=== PATIENT | female | born 1960 | race Asian ===

== ENCOUNTER → 2017-09-18 14:01 | Outpatient (POV) | payer OTHER, SELFPAY | DX: Z00.00 Encounter for general adult medical examination without abnormal findings (principal) ==

== ENCOUNTER 2023-12-27 08:07 | Outpatient (CLI) | payer MEDICARE, OTHER, SELFPAY ==
--- NOTE | 2023-12-27 08:14 | CT_ITS ---
APPROVED REPORT Primary Class Teacher: CLINICAL INDICATION Chest Pain TECHNIQUE Image Acquisition: A 128 slice MDCT scanner ([employer]lectrica View) was used for data acquisition. A noncontrast coronary calcium scan was performed. A CT attenuation threshold of 130 Hounsfield units (HU) was used for the detection of calcium in contiguous voxels of 1 sq mm in area to be counted as individual lesions. Bolus tracking in the ascending aorta with a threshold of 180 HU was performed. Immediately afterwards, ECG synchronized cardiac CT was then performed from the cardiac base to apex using retrospective gating with ECG tube current modulation. A total of 85 mL of Isovue 370 mg/mL contrast medium was administered at 5 mL/sec followed by a saline flush using a biphasic injection protocol. A tube voltage of 120 KVp was used. The patient received the following medications prior to the cardiac CT. 75 mg of oral metoprolol 5 mg of intravenous metoprolol 15 mg of oral ivabradine 0.8 mg of sublingual nitroglycerin The average heart rate at the time of acquisition was 75 bpm and regular. Image Reconstruction Transaxial images were reconstructed at 0.67 mm slide thickness. Data was reviewed interactively on an advanced workstation capable of 2 and 3-dimensional displays in all conventional reconstruction formats, including multiplanar reformations, maximum intensity projections, curved multiplanar reformations, and volume rendered reconstructions. When applicable, selected routine images describing the relevant coronary anatomy and pathology were saved and sent to PACS. Complications None Technical Quality Overall image quality was good. Coronary artery opacification was adequate. Total DLP (Dose-Length Product) is 1762.2 mGy-cm. The reported value represents the total of one or more individual components during the CT acquisition of this date and at this time, and as such, the same value may appear in more than one CT report depending on the interpreting/reporting physicians. COMPARISON None FINDINGS CT Coronary Calcium Scoring LMA (Left Main Artery) = 0 LAD (Left Anterior Descending) = 0 LCX (Left Coronary Circumflex) = 0 RCA (Right Coronary Artery) = 0 Total Calcium Score = 0 using the AJ-130 method. The interpretation of the calcium heart score is based on the following continuum*: 0 = no calcified plaque detected (risk of coronary artery disease is very low ??? less than 5%) 1-10 = calcium detected in extremely minimal levels (risk of coronary diseases is still low ??? less than 10%) 11-100 = mild levels of plaque detected with certainty (mild or minimal narrowing of heart arteries is likely) 101-400 = definite,at least moderate levels of plaque detected (relatively high risk of a heart attack within 3-5 years) >401-999 = extensive levels of plaque detected (high risk of heart attack, high levels of vascular disease are present, high likelihood of at least one significant coronary narrowing) *The calcium heart score quantifies the burden of coronary calcification/plaque in the coronary arteries. The calcium heart score is not able to evaluate the presence or burden of non-calcified (i.e. soft) plaque. There is mild calcification in the ascending thoracic aorta. Coronary CT Angiography The coronary arterial system is right dominant. Quantitative Stenosis Grading: Left Main (LM): The left main originates normally from the left sinus of Valsalva. The LM bifurcates into the left anterior descending artery and left circumflex artery. The LM is patent with no evidence of atherosclerosis. Left Anterior Descending (LAD) and Diagonal Branches: The LAD gives off 2 diagonal branch(es). The LAD and its branches are patent with no evidence of atherosclerosis. There is no evidence of LAD-myocardial bridge. Left Circumflex (LCX) and Obtuse Marginals (OM): The LCX gives off 1 Obtuse Marginal (OM) branch(es). The LCX and its branches are patent with no evidence of atherosclerosis. Right Coronary Artery (RCA): The RCA originates normally from the right sinus of Valsalva. The RCA gives off a posterior descending artery (PDA) and posterolateral (PL) branches. The RCA and its branches are patent with no evidence of atherosclerosis. Non-Coronary Cardiac Findings: Analysis of the left ventricular (LV) structure and function was performed after 3-D reconstruction of the LV from axial images, with user-corrected automatic contouring for assessment of LV volumes and user-defined reconstruction from oblique planes for measurement of 3-D cardiac structure and function. -The left ventricle systolic function is normal. -There is no left atrial appendage filling defect. Two right pulmonary veins and two left pulmonary veins drain normally into the left atrium. -No pericardial thickening or calcification. -Central and branch pulmonary arteries in the [id number] are unremarkable. -Thoracic aorta within the visualized thoracic aortic-branches in the [id number] is unremarkable. -Mild calcification in the ascending thoracic aorta. Extracardiac Structures No significant extra-cardiac findings. Note, however, that this study is focused on the cardiac findings. IMPRESSION -Absence of coronary calcification with an Agatston score = 0 using the AJ-130 method. -No evidence of significant flow-limiting atherosclerosis of the coronary arteries. -CAD-RADS 0. Management recommendations per ACC/AHA guidelines*, as clinically appropriate. *Recommendations: CAD RADS 0: Reassurance. Consider non-atherosclerotic causes of chest pain. CAD RADS 1: Consider non-atherosclerotic causes of chest pain. Consider preventive therapy and risk factor modification. CAD RADS 2: Consider non-atherosclerotic causes of chest pain. Consider preventive therapy and risk factor modification, particularly for patients with nonobstructive plaque in multiple segments. CAD RADS 3: Consider further functional testing. Consider symptom-guided anti-ischemic and preventive pharmacotherapy as well as risk factor modification per published guideline statements. CAD RADS 4A: Consider further functional testing or invasive coronary angiography with revascularization per published guideline statements. Consider symptom-guided anti-ischemic and preventive pharmacotherapy as well as risk factor modification per published guideline statements. CAD RADS 4B: Invasive coronary angiography recommended with revascularization per published guideline statements. Consider symptom-guided anti-ischemic and preventive pharmacotherapy as well as risk factor modification per published guideline statements. CAD RADS 5: Consider invasive angiography and/or viability assessment with revascularization per published guideline statements. Consider symptom-guided anti-ischemic and preventive pharmacotherapy as well as risk factor modification per published guideline statements. CRITICAL RESULT None COMMUNICATION Per this written report The coronary and cardiac findings of this CCTA were reviewed, reported, and signed by Angel Bhandari MD (Range Mechanic) Conclusion Electronically signed by : Allyssa Bhandari MD 12/30/2023 15:28:07
[2023-12-27 08:19] VITALS: BMI 35.1
[2023-12-27 08:36] VITALS: BP 136/88; PULSE 79; RESP 16; TEMP 36.1; O2SAT 100
[2023-12-27] MEDS: IVABRADINE HCL 7.5MG TABLET 15 MG PO (08:38)
[2023-12-27] MEDS: METOPROLOL TARTRATE 50MG TABLET 50 MG (08:39)
[2023-12-27] MEDS: METOPROLOL TARTRATE 25MG TABLET 25 MG (08:39)
[2023-12-27 08:45] LABS: Chloride 97 mmol/L (98-107)
[2023-12-27 08:46] LABS: Sodium 137 mmol/L (136-145)
[2023-12-27 08:48] LABS: Blood Urea Nitrogen 24 mg/dl (7-17); Creatinine Clearance Estimated 75 mL/min (50-200); Estimated Glomerular Filt Rate 72 ml/min (>60); GFR (African American) 87 ML/MIN (>60)
[2023-12-27 08:49] LABS: Calcium 9.4 mg/dl (8.4-10.2); Carbon Dioxide 32 mmol/L (22.0-30.0); Glucose 111 mg/dl (74-100)
[2023-12-27 09:48] VITALS: BP 158/88; PULSE 76; RESP 18; O2SAT 97
[2023-12-27] MEDS: METOPROLOL TARTRATE 5MG/5ML VIAL 5 MG IV (09:48)
[2023-12-27 09:58] VITALS: BP 133/98; PULSE 72; RESP 18; O2SAT 100
[2023-12-27] MEDS: IOPAMIDOL-370 (76%);100ML BOTTLE 85 ML IV (10:04)
[2023-12-27] MEDS: SODIUM CHLORIDE 0.9% 10ML SYR (RAD ONLY) 10 ML IV (10:04)
[2023-12-27] MEDS: 0.9 % SODIUM CHLORIDE 50 ML VIAL IV (10:04)
--- NOTE | 2023-12-27 10:04 | CA_ITS ---
APPROVED REPORT EXAM: Comprehensive 2D, Doppler, and color-flow Echocardiogram Medical Insurance Claims Processor: Asiya Fiore, RT(R) Ht: 5 ft 1 in Wt: 186lbs BSA: 1.83 BP: 144/99 mmHg Indications: AFIB, hyperlipidemia, HTN, DM, pre op rt knee replacement, PUSHPA, bilateral mastectomy 2020 2D Dimensions LVEF (Rodriguez's) 63.70 % F: 54 - 74 LV Volume 39.40 mL F: 46 - 106 LV Volume Index 21.5 mL/m2 F: 29 - 61 LA Volume 16.70 mL LA Volume Index 9.13 mL/m2 (M/F) 16-34 EF AP4 67.60 % EF AP2 57.4 % EF BP 63.7 % GL Strain -21.4 % M-Mode Dimensions RVDd 2.74 cm (0.9-2.6) LA Diam 4.51 cm (1.9-4.0) LVDd 4.75 cm (3.5-5.7) LVDs 3.55 cm (3.5-5.7) IVSd 1.00 cm (0.6-1.1) PWd 1.10 cm (0.6-1.1) EF (Teich) 49.90% FS 25.30% EDV (Teich) 104.90 mL ESV (Teich) 52.60 mL Tricuspid Valve TR P. Velocity 223.00 cm/s RAP Estimate 10.00 mmHg RVSP 29.80 mmHg Left Ventricle The left ventricle is normal size. The left ventricular systolic function is normal. The left ventricular ejection fraction is within the normal range. There is increased LV wall thickness. There is normal LV segmental wall motion. Diastolic function is indeterminate. LVEF is 60%. Right Ventricle The right ventricle is normal size. The right ventricular systolic function is normal. Atria Left atrium is mildly dilated. Right atrium is mildly dilated. There is no Doppler evidence of interatrial shunt. Aortic Valve The aortic valve is mildly thickened. There is no aortic valvular stenosis. Mild aortic regurgitation. Mitral Valve The mitral valve leaflets are mildly thickened. No evidence of mitral valve stenosis. Trace mitral regurgitation. Tricuspid Valve The tricuspid valve leaflets are thin and pliable. Trace tricuspid regurgitation. RVSP is 20-25 mmHg. Pulmonic Valve The pulmonary valve is normal in structure. Mild pulmonic regurgitation. Great Vessels The aortic root is normal in size. The ascending aorta is not well-visualized. IVC is normal in size and collapses >50% with inspiration. Pericardium There is no pericardial effusion. Other Information Study Quality: Fair Conclusion Normal biventricular systolic function. Mild biatrial dilation. Mild AI, mild NH. Electronically signed by : Allyssa Bhandari MD 12/31/2023 00:42:07
[2023-12-27 10:05] VITALS: BP 132/85; PULSE 77; RESP 16; O2SAT 96
[2023-12-27] MEDS: NITROGLYCERIN 0.4MG SL TABLET SL (11:19)
== END 2023-12-27 10:05 | disposition home or self-care (01) ==
LOC: RT 08:08 → RAD 08:31
PROVIDERS: PCP Family Medicine; Visit Provider Physician Assistant
DX: R07.2 Precordial pain (principal); R40.0 Somnolence; G47.9 Sleep disorder, unspecified; I48.91 Unspecified atrial fibrillation
CPT/HCPCS: 75574; 80048; 93306; Q9967

== ENCOUNTER 2024-01-08 10:34 | Day surgery (SDC) | payer MEDICARE, OTHER, SELFPAY ==
[2024-01-07 14:33] VITALS: BMI 34.5
--- NOTE | 2024-01-08 11:04 | CA_ITS ---
APPROVED REPORT EXAM: Comprehensive 2D, Doppler, and color-flow Echocardiogram Hemp Fiber Taker Off: Estephania Tobar RVT Ht: 5 ft 1 in Wt: 183lbs BSA: 1.82 BP: 140/90 mmHg Indications: A-FIB WITH CARDIOVERSION,HTN,HLD,DM Procedure After obtaining informed consent, patient underwent transesophageal echo in the [facility]. Type of Sedation : MAC Sedation start time: 12:50 PM Case end Time: 1:05 PM Transesophageal probe was inserted and advanced into esophagus without difficulty by Dr. Angel Bhandari. The REDDY was performed without complications. Synchronized Cardioversion acheived with 150 Joules after 1 attempt(s). Rhythm following Synchronized Cardioversion: Normal Sinus Rhythm Throughout the procedure, the blood pressure, pulse oximetry, cardiac rhythm, and rate were monitored. The patient tolerated the procedure without adverse effects. Recovery from conscious sedation was uneventful and vital signs were stable. Left Ventricle The left ventricle is normal size. The left ventricular systolic function is normal. The left ventricular ejection fraction is within the normal range. There is increased LV wall thickness. There is normal LV segmental wall motion. LVEF is 55%. Right Ventricle The right ventricle is normal size. The right ventricular systolic function is normal. Atria The left atrium size is normal. No thrombus is visualized in the left atrium or appendage. The right atrium size is normal. Interatrial septum is intact without evidence of ASD or PFO. Aortic Valve The aortic valve is mildly thickened. The aortic valve is trileaflet. Mild aortic regurgitation. Mitral Valve The mitral valve leaflets are mildly thickened. No evidence of mitral valve stenosis. Trace mitral regurgitation. Tricuspid Valve The tricuspid valve leaflets are thin and pliable. Mild tricuspid regurgitation. Pulmonic Valve The pulmonary valve is normal in structure. Trace pulmonic regurgitation. RVSP is 7 mmHg plus RA pressure. Great Vessels The aortic root is normal in size. The ascending aorta is normal in size. Pericardium Trivial circumferential pericardial effusion is present. No echo indications of tamponade. Other Information Study Quality: Fair Conclusion Normal biventricular systolic function. Mild AI, mild TR. Trivial circumferential pericardial effusion is present. No echo indications of tamponade. No evidence of LA or IVET thrombus. Once the REDDY demonstrated no evidence of thrombus, the patient underwent DCCV with 150 J, after which she converted from atrial fibrillation to normal sinus rhythm. During recovery, she remained in normal sinus rhythm with brief episodes of atrial fibrillation (which spontaneously converted). Due to paroxysms of atrial fibrillation post cardioversion, she was planned to start amiodarone 400 mg 3 times daily, with plan to taper and eventually discontinue over time. Electronically signed by : Allysas Bhandari MD 01/09/2024 12:55:39
--- NOTE | 2024-01-08 11:12 | ECG_ITS ---
APPROVED REPORT Exam: Resting ECG HR:93 bpm ECG Measurements Heart Rate 93 AXES QRSd 84 QRS -15 QT 366 T 3 QTc [address] DEVIATION AND MODERATE T-WAVE ABNORMALITY, CONSIDER ANTERIOR ISCHEMIA [-0.1+ mV T-WAVE IN V3/V4] ABNORMAL ECG UNCONFIRMED REPORT Electronically signed by : Garcia De La Vega MD 01/09/2024 16:09:29
[2024-01-08 11:26] VITALS: BP 141/66; PULSE 77; RESP 18; TEMP 36.2; O2SAT 100
[2024-01-08 11:34] LABS: POC Glucose,Bedside 101 (70-110)
[2024-01-08] MEDS: LACTATED RINGERS 1000ML 1,000 ML 25 ML IV (11:37)
[2024-01-08 12:16] LABS: Basophils # 0.1 K/mm3 (0-0.2); Basophils % 1.2 % (0.1-2.0); Chloride 105 mmol/L (98-107); Eosinophils # 0.1 K/mm3 (0.0-0.4); Hematocrit 44.5 % (37.0-47.0); Hemoglobin 14.4 g/dL (12.2-16.2); Lymphocytes % 24.4 % (10-50); Mean Corpuscular HGB Conc 32.3 g/dL (31.8-35.4); Mean Corpuscular Hemoglobin 29.5 pg (27.0-31.2); Mean Corpuscular Volume 91.4 fl (81-99); Mean Platelet Volume 7.8 fl (7.4-10.4); Monocytes # 0.3 K/mm3 (0.1-1.0); Monocytes % 4.1 % (1.7-9.3); Neutrophils # 5.5 K/mm3 (1.8-7.8); Neutrophils % 69.2 % (37.0-80.0); Platelet Count 337 K/mm3 (142-424); Potassium 4.8 mmoL/L (3.5-5.1); Red Blood Count 4.86 M/mm3 (4.20-5.40); Red Cell Distribution Width 15.3 % (11.5-17.5); Sodium 140 mmol/L (136-145)
[2024-01-08 12:19] LABS: Anion Gap 10.8 mEq/L (5-15); Blood Urea Nitrogen 23 mg/dl (7-17); Calcium 9.5 mg/dl (8.4-10.2); Carbon Dioxide 29 mmol/L (22.0-30.0); Creatinine Clearance Estimated 73 mL/min (50-200); Estimated Glomerular Filt Rate 84 ml/min (>60); GFR (African American) 102 ML/MIN (>60); Glucose 112 mg/dl (74-100)
[2024-01-08 12:31] LABS: INR 1.02 (0.9-1.1); Prothrombin Time 11.4 seconds (10.1-12.5)
--- NOTE | 2024-01-08 12:39 | EXP.ANES.CKL ---
[facility] Disclaimer: The information contained in this section may have been updated after the patient was seen, as this information can be updated by other users. Medical History Diabetes Hyperlipidemia Hypertension Atrial fibrillation Surgical History H/O section History of mastectomy Family History Other No significant family history Social History (Updated 01/08/24 @ 11:11 by Glendy Morales RN) Smoking Status: Never smoker alcohol intake: never substance use type: denies use current occupational status: employed Travel in the last 8 weeks: Inside the [place] caffeine: Yes [facility] Anesthesia Checklist Patient Identification Patient Identification: Arm Band and Verbal (Name & ) Structural Data Admitted From: Home Planned Operative Procedure/s: REDDY w/cardioversion Consent for Planned Operative Procedure(s) Verified: Yes Verified Documents: Surgical Consent and History and Physical NPO Status Verified Time NPO: 20:30 Chart Verification Results Verified: CBC, BMP and ECG Additional verifications Fingerstick Blood Glucose: 101 Patient : No Anesthesia Reactions: No Hx Blood Transfusions: No Blood Transfusion Reaction: No Cardiovascular Assessment Pulse Rhythm: Irregular Peripheral Edema: No Airway Assessment Mallampati Score:: Class II C-Spine Mobility Assessed: Yes TMJ Mobility Assessed: Yes Dentition: Partials (Bottom. Nothing loose per pt.) Neurological Assessment Level of Consciousness: Awake, Alert, Appropriate and Follows Commands Hx Seizures: No Numbness or tingling in extremities: No Anesthesia Plan Anesthesia Risk discussed: Yes Anesthesia Plan: Verified ASA Class: III Anesthesia Type: MAC
[2024-01-08 12:50] VITALS: O2SAT 95
[2024-01-08 13:04] VITALS: BP 106/61; PULSE 67; RESP 16; TEMP 36.1; O2SAT 96
[2024-01-08 13:14] VITALS: BP 128/70; PULSE 61; RESP 16; O2SAT 96
--- NOTE | 2024-01-08 13:14 | ECG_ITS ---
APPROVED REPORT Exam: Resting ECG HR:51 bpm ECG Measurements Heart Rate 51 AXES NH 163 P 46 QRSd 92 QRS -18 QT 474 T -14 QTc 450 Conclusion SINUS BRADYCARDIA WITH OCCASIONAL SUPRAVENTRICULAR PREMATURE COMPLEXES POSSIBLE RIGHT VENTRICULAR CONDUCTION DELAY [RSR (QR) IN V1/V2] NONSPECIFIC ST & T-WAVE ABNORMALITY BORDERLINE ECG UNCONFIRMED REPORT Electronically signed by : Garcia De La Vega MD 01/09/2024 16:08:56
[2024-01-08 13:24] VITALS: BP 102/62; PULSE 62; RESP 16; O2SAT 98
== END 2024-01-08 13:34 | disposition home or self-care (01) ==
PROVIDERS: PCP Family Medicine; Visit Provider Internal Medicine
DX: R40.0 Somnolence (principal); G47.9 Sleep disorder, unspecified; Z01.810 Encounter for preprocedural cardiovascular examination; E11.9 Type 2 diabetes mellitus without complications; R06.83 Snoring; E78.2 Mixed hyperlipidemia; I48.0 Paroxysmal atrial fibrillation; I10 Essential (primary) hypertension
CPT/HCPCS: 36415; 80048; 82962; 85025; 85610; 92960; 93005; 93270; 93312; 93319; J7120

== ENCOUNTER 2024-04-21 14:27 | Outpatient (CLI) | payer MEDICARE, OTHER, SELFPAY ==
[2024-04-21 15:35] LABS: Free T4 (Free Thyroxine) 1.37 ng/dl (0.78-2.19)
[2024-04-21 15:38] LABS: Alanine Aminotransferase 17 U/L (12-78); Albumin Level 4.3 g/dl (3.5-5.0); Alkaline Phosphatase 105 U/L (38-126); Anion Gap 15.7 mEq/L (5-15); Aspartate Amino Transferase 24 U/L (14-36); Bilirubin,Direct 0.2 mg/dl (0.0-0.4); Bilirubin,Total 0.2 mg/dl (0.2-1.3); Blood Urea Nitrogen 20 mg/dl (7-17); Calcium 9.2 mg/dl (8.4-10.2); Carbon Dioxide 27 mmol/L (22.0-30.0); Chloride 103 mmol/L (98-107); Estimated Glomerular Filt Rate 63 ml/min (>60); GFR (African American) 76 ML/MIN (>60); Glucose 115 mg/dl (74-100); Potassium 4.7 mmoL/L (3.5-5.1); Sodium 141 mmol/L (136-145); Total Protein,Serum 7.4 g/dl (6.3-8.2)
== END 2024-04-21 23:59 | disposition home or self-care (01) ==
LOC: LAB 14:29
PROVIDERS: PCP Family Medicine; Visit Provider Internal Medicine
DX: K21.9 Gastro-esophageal reflux disease without esophagitis (principal); E11.9 Type 2 diabetes mellitus without complications; E78.2 Mixed hyperlipidemia; I10 Essential (primary) hypertension; I48.0 Paroxysmal atrial fibrillation; R00.1 Bradycardia, unspecified; R06.00 Dyspnea, unspecified
CPT/HCPCS: 36415; 80048; 80076; 84439; 84443